=== PATIENT | female | born 1965 | race American Indian/Alaskan Native ===

== ENCOUNTER 2017-08-22 08:04 | Day surgery (SDC) | payer BC ==
[2017-08-16 08:11] VITALS: BMI 31.8
[2017-08-22 09:04] VITALS: TEMP 98.6
[2017-08-22] MEDS ORDERED: Lactated Ringer's 500 ML IV SCH (11:30)
[2017-08-22] MEDS ORDERED: Propofol 10 mg/ml Inj (20 ML) ONE (11:31)
[2017-08-22] MEDS ORDERED: Midazolam 2 MG/2 ML VIAL ONE (11:31)
[2017-08-22 12:51] VITALS: O2SAT 100
[2017-08-22 12:53] VITALS: PULSE 68
[2017-08-22 13:50] VITALS: BP 168/98; RESP 20
== END 2017-08-22 13:45 | disposition home or self-care (01) ==
LOC: C.ENDO 08:04
PROVIDERS: ATTEND Internal Medicine Gastroenterology
DX: R19.4 Change in bowel habit (principal); R12 Heartburn; K63.5 Polyp of colon; K64.1 Second degree hemorrhoids; K44.9 Diaphragmatic hernia without obstruction or gangrene; K21.0 Gastro-esophageal reflux disease with esophagitis; K29.70 Gastritis, unspecified, without bleeding; J45.909 Unspecified asthma, uncomplicated; I10 Essential (primary) hypertension; E11.9 Type 2 diabetes mellitus without complications; Z79.84 Long term (current) use of oral hypoglycemic drugs; Z79.02 Long term (current) use of antithrombotics/antiplatelets
CPT/HCPCS: 43239; 45380; 45385; 82948; 84703; 88305; J2250; J2704; J7120

== ENCOUNTER 2018-02-04 20:55 | Emergency (ER) | payer BC ==
[2018-02-04 20:55] VITALS: BMI 31.8
[2018-02-04 21:17] VITALS: TEMP 97.9; O2SAT 98
[2018-02-04 22:06] LABS: BASO # 0.1 K/uL (0.0-0.2); BASO % 1.2 % (0.0-2.0); EOS # 0.3 K/uL (0.0-0.7); EOS % 3.8 % (0.0-4.0); HEMOGLOBIN 12.2 g/dL (11.0-16.0); LYMPH # 3.4 K/uL (1.0-4.3); LYMPH % 46.6 % (20.0-40.0); MEAN CELL VOLUME 83.8 fL (81.0-99.0); MEAN CORPUSCULAR HEMOGLOBIN 29.7 pg (27.0-31.0); MEAN CORPUSCULAR HGB CONC 35.5 g/dL (33.0-37.0); MEAN PLATELET VOLUME 8.4 fL (7.2-11.7); MONO # 0.4 K/uL (0.0-0.8); MONO % 5.9 % (0.0-10.0); NEUT # 3.1 K/uL (1.8-7.0); NEUT % 42.5 % (50.0-75.0); NRBC % 0.1 % (0.0-2.0); RBC 4.11 Mil/uL (3.80-5.20); RED CELL DISTRIBUTION WIDTH 14.1 % (11.5-14.5); WHITE BLOOD COUNT 7.3 K/uL (4.8-10.8)
--- NOTE | 2018-02-04 22:27 | C.PDOC ---
History Of Present Illness 52 year old female presents to the ED c/o bruising to the right arm that she noticed this morning. Patient reports she has a similar episode 2 weeks ago that resolved spontaneously resolved. Patient is also c/o minimal pain to right arm associated with tingling to right hand. Patient denies injury, fall, trauma , weakness, numbness. Time Seen by Provider: 02/04/18 21:28 Chief Complaint (Nursing): Upper Extremity Problem/Injury History Per: Patient History/Exam Limitations: no limitations Onset/Duration Of Symptoms: Days Current Symptoms Are (Timing): Still Present Quality: "Pain" Recent travel outside of the [place]: No Additional History Per: Patient Past Medical History Reviewed: Historical Data, Nursing Documentation, Vital Signs Vital Signs: Last Vital Signs Temp 97.9 F 02/04/18 21:13 Pulse 71 02/04/18 22:27 Resp 18 02/04/18 22:27 BP 160/93 H 02/04/18 22:27 Pulse Ox 98 02/04/18 22:54 - Medical History PMH: Asthma, Gastritis, HTN, Peripheral Edema Denies: Chronic Kidney Disease Surgical History: Endoscopy - [facility] Procedures CORONAR ARTERIOGR-2 CATH (03/29/14) LEFT HEART CARDIAC CATH (03/29/14) LT HEART ANGIOCARDIOGRAM (03/29/14) Family History: States: Unknown Family Hx - Social History Hx Alcohol Use: No Hx Substance Use: No - Immunization History Hx Tetanus Toxoid Vaccination: No Hx Influenza Vaccination: No Hx Pneumococcal Vaccination: No Review Of Systems Constitutional: Negative for: Fever, Chills Musculoskeletal: Positive for: Arm Pain (intermittent) Skin: Positive for: Bruising Neurological: Negative for: Numbness Physical Exam - Physical Exam Appears: Non-toxic, No Acute Distress Skin: Normal Color, Warm, Dry, No Ecchymosis, Other (small hematoma localized to mid lateral posterior right arm. ) Head: Atraumatic, Normacephalic Eye(s): bilateral: Normal Inspection, PERRL Nose: No Discharge Oral Mucosa: Moist Neck: Normal ROM, Supple Chest: Symmetrical Extremity: Normal ROM, No Tenderness, Capillary Refill (< 2 seconds), No Deformity, No Swelling Pulses: Left Brachial: Normal, Right Brachial: Normal, Left Dorsalis Pedis: Normal, Right Dorsalis Pedis: Normal Neurological/Psych: Oriented x3, Normal Speech, Normal Cognition, Normal Motor, Normal Sensation Gait: Steady ED Course And Treatment - Laboratory Results Result Diagrams: 02/04/18 22:00 O2 Sat by Pulse Oximetry: 98 (ON RA) Pulse Ox Interpretation: Normal Progress Note: Plan: - Labs. Pt with small localized area of ecchymosis/ hematoma to Rt forearm,atraumatic. No xray indicated at this time. On reassessment, patient appears comfortable, and is in no acute distress. Patient was instructed to follow up with physician/clinic in 1-2 days for further evaluation. Disposition Counseled Patient/Family Regarding: Diagnosis, Need For Followup - Disposition Referrals: Sheri Barakat MD [Staff Provider] - Disposition: HOME/ ROUTINE Disposition Time: 22:25 Condition: STABLE Additional Instructions: Please follow up with PMD Take tylenol or advil if pain Return to ER if worse Instructions: Contusion (DC) Forms: [facility] ([place]atemalan) - Clinical Impression Clinical Impression: Ecchymosis of forearm - PA / QUANTITATIVE MANAGER / Resident Statement MD/DO has reviewed & agrees with the documentation as recorded. - Scribe Statement The provider has reviewed the documentation as recorded by the Scribe Sinan Zaman All medical record entries made by the Patriciaibgustavo were at my direction and personally dictated by me. I have reviewed the chart and agree that the record accurately reflects my personal performance of the history, physical exam, medical decision making, and the department course for this patient. I have also personally directed, reviewed, and agree with the discharge instructions and disposition.
[2018-02-04 22:28] VITALS: BP 160/93; PULSE 71; RESP 18
== END 2018-02-04 22:40 | disposition home or self-care (01) ==
LOC: C.ER 20:55
DX: S50.11XA Contusion of right forearm, initial encounter (principal); X58.XXXA Exposure to other specified factors, initial encounter

== ENCOUNTER 2018-02-05 13:15 | Emergency (ER) | payer BC ==
[2018-02-05 13:16] VITALS: BMI 31.8
--- NOTE | 2018-02-05 13:55 | C.PDOC ---
History Of Present Illness 52 y/o female c/o pain and swelling to right forearm x 2 days. says she had no injury and woke with ecchymosis and tenderness yesterday, sts that swelling proximal to bruise has only worsened since then, and now has a bruise on right upper thigh as well without injury. pt take plavix. pt seen in ed yesterday for this. pt has not elevated arm, applied cold compress or taken any analgesics. Time Seen by Provider: 02/05/18 13:30 Chief Complaint (Nursing): Upper Extremity Problem/Injury History Per: Patient History/Exam Limitations: no limitations Onset/Duration Of Symptoms: Days (2) Current Symptoms Are (Timing): Worse Quality: "Pain" Severity: Moderate Exacerbating Factor(s): Nothing Past Medical History Reviewed: Historical Data, Nursing Documentation, Vital Signs Vital Signs: Last Vital Signs Temp 98.6 F 02/05/18 15:10 Pulse 70 02/05/18 15:10 Resp 17 02/05/18 15:10 BP 130/81 02/05/18 15:10 Pulse Ox 100 02/05/18 15:10 - Medical History PMH: Asthma, Gastritis, HTN, Peripheral Edema Denies: Chronic Kidney Disease Surgical History: Endoscopy - [facility] Procedures CORONAR ARTERIOGR-2 CATH (03/29/14) LEFT HEART CARDIAC CATH (03/29/14) LT HEART ANGIOCARDIOGRAM (03/29/14) Family History: States: Unknown Family Hx - Social History Hx Alcohol Use: Yes Hx Substance Use: No - Immunization History Hx Tetanus Toxoid Vaccination: No Hx Influenza Vaccination: No Hx Pneumococcal Vaccination: No Review Of Systems Constitutional: Negative for: Fever, Chills Musculoskeletal: Positive for: Arm Pain (right) Skin: Positive for: Bruising (right forearm and right thigh) Neurological: Negative for: Weakness, Numbness Physical Exam - Physical Exam Appears: Non-toxic, No Acute Distress Skin: Warm, Dry, Ecchymosis (tender mildly swollen ecchymosis to upper third right forearm, approx 3 cm round. 2 cm flat ecchymosis to right thigh, non tender) Extremity: Normal ROM, Capillary Refill (less than 2 eseconds), No Deformity, Swelling (right forearm at site of bruise) Pulses: Right Radial: Normal Neurological/Psych: Oriented x3, Normal Speech, Normal Cognition, Normal Motor, Normal Sensation ED Course And Treatment O2 Sat by Pulse Oximetry: 97 Medical Decision Making Medical Decision Making: second eval for non traumatic ecchymosis to right forearm; cbc done on first visit; normal plts. coags checked on this visit- normal. xray forearm normal. [place] bandage and sling given with analgesics and pmd f/u Disposition Counseled Patient/Family Regarding: Studies Performed, Diagnosis, Need For Followup, Rx Given - Disposition Referrals: Sheri Barakat MD [Staff Provider] - Disposition: HOME/ ROUTINE Disposition Time: 14:40 Condition: GOOD Additional Instructions: Please apply cold compresses to swollen bruised area several times per day, and wear [place] bandage during awake hours to help decrease swelling. Keep arm elevated at bedtime (prop up on pillow) and wear sling otherwise. Follow up with Dr Barakat in a few days. Tylenol or Motrin for pain. Instructions: Contusion (DC) Forms: General Discharge Instructions, [facility] ([place]), Work Excuse - Clinical Impression Clinical Impression: Contusion of right forearm, subsequent encounter
--- NOTE | 2018-02-05 14:02 | RAD ---
PROCEDURE: Radiographs of the Right Forearm HISTORY: swelling mid forearm COMPARISON: None available. TECHNIQUE: Frontal and lateral views obtained. FINDINGS: BONES: No fracture or destructive lesion. JOINT SPACES: Unremarkable. OTHER FINDINGS: None. IMPRESSION: Unremarkable radiographs of the right forearm.
[2018-02-05 14:20] LABS: PROTHROMBIN TIME 11.3 SECONDS (9.7-12.2)
[2018-02-05 15:11] VITALS: BP 130/81; PULSE 70; RESP 17; TEMP 98.6
[2018-02-05 16:40] VITALS: O2SAT 97
== END 2018-02-05 15:10 | disposition home or self-care (01) ==
LOC: C.ER 13:15
DX: S50.11XD Contusion of right forearm, subsequent encounter (principal); X58.XXXD Exposure to other specified factors, subsequent encounter

== ENCOUNTER 2019-01-05 18:58 | Observation (INO) | payer BC ==
[2019-01-05 18:58] VITALS: BMI 31.8
[2019-01-05 20:13] LABS: BASO % 0.5 % (0.0-2.0); EOS # 0.1 K/uL (0.0-0.7); EOS % 2.2 % (0.0-4.0); HEMOGLOBIN 11.8 g/dL (11.0-16.0); LYMPH # 2.3 K/uL (1.0-4.3); MEAN CELL VOLUME 85.1 fL (81.0-99.0); MEAN CORPUSCULAR HEMOGLOBIN 27.7 pg (27.0-31.0); MEAN CORPUSCULAR HGB CONC 32.6 g/dL (33.0-37.0); MEAN PLATELET VOLUME 8.1 fL (7.2-11.7); MONO # 0.3 K/uL (0.0-0.8); MONO % 5.4 % (0.0-10.0); NEUT # 3.2 K/uL (1.8-7.0); NEUT % 52.9 % (50.0-75.0); RBC 4.27 Mil/uL (3.80-5.20); RED CELL DISTRIBUTION WIDTH 13.8 % (11.5-14.5)
[2019-01-05 20:28] LABS: ALB/GLOB RATIO 1.4 (1.0-2.1); ALBUMIN 4.1 g/dL (3.5-5.0); ALT/SGPT 14 U/L (9-52); AST/SGOT 30 U/L (14-36); BLOOD UREA NITROGEN 17 mg/dL (7-17); CALCIUM 9.7 mg/dl (8.6-10.4); GFR NON-AFRICAN AMERICAN > 60
[2019-01-05 20:38] LABS: B-TYPE NATRIURETIC PEPTIDE 237 pg/mL (0-900)
[2019-01-05 21:08] LABS: T3 1.24 nmol/L (1.49-2.60)
--- NOTE | 2019-01-05 21:45 | C.PDOC ---
History Of Present Illness 53 year old female referred by PMD to ED for evaluation of EKG changes while having an EKG done in the doctor's office. Patient also complains of chest discomfort and palpitations for several days. She also complains of dry cough. Patient denies pain and SOB. Chief Complaint (Nursing): Chest Pain History Per: Patient History/Exam Limitations: no limitations Onset/Duration Of Symptoms: Days Current Symptoms Are (Timing): Still Present Quality: Other (discomfort) Associated Symptoms: denies: Dyspnea Alleviating Factors: None Past Medical History Reviewed: Historical Data, Nursing Documentation, Vital Signs Vital Signs: Last Vital Signs Temp 98.5 F 01/05/19 19:18 Pulse 68 01/05/19 21:37 Resp 16 01/05/19 21:37 BP 160/85 H 01/05/19 21:37 Pulse Ox 100 01/05/19 21:37 - Medical History PMH: Asthma, Gastritis, HTN, Peripheral Edema Denies: Chronic Kidney Disease Surgical History: Endoscopy - [facility] Procedures CORONAR ARTERIOGR-2 CATH (03/29/14) LEFT HEART CARDIAC CATH (03/29/14) LT HEART ANGIOCARDIOGRAM (03/29/14) Family History: States: Unknown Family Hx - Social History Hx Alcohol Use: Yes Hx Substance Use: No - Immunization History Hx Tetanus Toxoid Vaccination: No Hx Influenza Vaccination: No Hx Pneumococcal Vaccination: No Review Of Systems Cardiovascular: Positive for: Chest Pain (chest discomfort), Palpitations Respiratory: Positive for: Cough. Negative for: Shortness of Breath, Sputum Gastrointestinal: Negative for: Nausea, Vomiting Physical Exam - Physical Exam Appears: Well, Non-toxic, No Acute Distress Skin: Normal Color, Warm, Dry Head: Atraumatic, Normacephalic Neck: Normal ROM, Supple Chest: Symmetrical, No Deformity, No Tenderness Cardiovascular: Rhythm Regular, No Murmur Respiratory: Accessory Muscle Use, No Rales, No Rhonchi, No Wheezing Gastrointestinal/Abdominal: Normal Exam, Soft, No Tenderness Neurological/Psych: Oriented x3, Normal Speech, Normal Cognition ED Course And Treatment - Laboratory Results Result Diagrams: 01/05/19 20:07 01/05/19 20:07 Lab Results: Troponin I < 0.0120 ng/mL (0.00-0.120) 01/05/19 20:07 NT-Pro-B Natriuret Pep 237 pg/mL (0-900) 01/05/19 20:07 Total Bilirubin 0.2 mg/dL (0.2-1.3) 01/05/19 20:07 AST 30 U/L (14-36) 01/05/19 20:07 ALT 14 U/L (9-52) 01/05/19 20:07 Alkaline Phosphatase 93 U/L (38-126) 01/05/19 20:07 Total Protein 7.0 g/dL (6.3-8.3) 01/05/19 20:07 Albumin 4.1 g/dL (3.5-5.0) 01/05/19 20:07 Globulin 3.0 gm/dL (2.2-3.9) 01/05/19 20:07 Albumin/Globulin Ratio 1.4 (1.0-2.1) 01/05/19 20:07 ECG: Interpreted By Me, Viewed By Me ECG Rhythm: Sinus Rhythm ECG Interpretation: Normal Interpretation Of ECG: Normal axis. T-wave inversion in the inferior and lateral leads. Rate From EC O2 Sat by Pulse Oximetry: 100 (in RA) Medical Decision Making Medical Decision Making: Impression: 53 year old female referred by PMD to ED for evaluation of EKG changes Plan: EKG and CXR ordered for patient Labs ordered with cardiac enzymes, CBC, and CMP Patient given aspirin Progress: Spoke to Dr. Barakat. T- wave inversions are new from the patient's previous EKG in his office. Patient to be admitted to Dr. Barakat's service in [facility]. Patient is currently in no distress. Disposition - Disposition Disposition: HOSPITALIZED Disposition Time: 20:30 Condition: STABLE - Clinical Impression Clinical Impression: Chest pain, Acute electrocardiogram changes - Scribe Statement The provider has reviewed the documentation as recorded by the Scribe (Chiquis William) All medical record entries made by the Scribe were at my direction and personally dictated by me. I have reviewed the chart and agree that the record accurately reflects my personal performance of the history, physical exam, medical decision making, and the department course for this patient. I have also personally directed, reviewed, and agree with the discharge instructions and disposition.
[2019-01-05] MEDS ORDERED: Glucagon Recombinant 1 mg Inj IM PRN (23:54)
[2019-01-06 04:24] LABS: CK-MB 0.87 ng/mL (0.0-3.38)
[2019-01-06] MEDS: Levothyroxine 88 MCG TAB PO SCH (05:42)
[2019-01-06] MEDS: Nitroglycerin 2% Ointment Foilpak UD TOP SCH ×4 (05:42→23:58)
[2019-01-06] MEDS: (Novolog) Insulin Aspart, Recombinant 100 u/ml 10 ml vial SC SCH ×4 (07:19→21:38)
[2019-01-06] MEDS: Pantoprazole 40 mg EC Tab PO SCH (09:10)
[2019-01-06] MEDS: Enoxaparin 30 mg Syringe SC SCH ×2 (09:10→21:38)
[2019-01-06] MEDS: diltiaZEM 300 mg/24 Hours CD Cap PO SCH (09:10)
[2019-01-06] MEDS ORDERED: Aluminum Hydroxide/Magnesium Hydroxide Susp (30 mL) PO ONE (10:04)
--- NOTE | 2019-01-06 10:05 | RAD ---
Chest x-ray single frontal view HISTORY: Chest pain. COMPARISON: None available. Findings: No focal infiltrate or effusion. Heart size within normal limits. Calcific tendinopathy of the right proximal humerus. Impression: No focal infiltrate or effusion.
--- NOTE | 2019-01-06 11:51 | CP.PCM.HP ---
History of Present Illness - History of Present Illness History of Present Illness: COMPREHENSIVE CONSULT HPI CHEST PAIN FOR FEW DAYS . EKG DONE IN OFFICE AND ER SHOWS DEEP T WAVE INVERSION IN CHEST LEADS . PREVIOUS EKG ARE NORMAL . ECHO SHOWED NORMAL LV EF WITH NORMAL WALL MOTION HAS H/O DM, UNCONTROLLED HTN, MALIGNANT THROID NODULE REMOVED , COPD AND SEVERE REFLUX ESOPHAGITIS PAST HIST. PERSONAL HIST: Smoking. N Alcohol. N Allergy N Travel_- . FAMILY HIST : ROS : Constitutional: Negative for weight change, chills, night sweats, fatigue and usage of assist device. Eyes: Negative for redness, swelling, itching, discharge, vision changes, blurry vision, double vision, glaucoma, cataracts, Ears: Negative for hearing loss, ringing, , tinnitus, vertigo Nose: Negative for rhinorrhea, stuffiness, sniffing, itching, postnasal drip, discoloration, nasal congestion and epistaxis. Throat: Negative for throat clearing, sore throat, hoarseness, difficulty swallowing and difficulty speaking. Respiratory: Negative for cough, , sputum production, chest tightness, wheezing, pleuritic chest pain ,daytime somnolence, chronic cough, hemoptysis, snoring at night, Cardiovascular: Negative for PND, Edema of legs, leg cramps, angina, claudication, , irregular heartbeat, Neurology: Negative for irritability, muscle weakness, numbness and tingling, seizures, tremors, migraines, slurred speech, syncope, memory loss, mood changes, recurrent headaches Gastrointestinal: Negative for difficulty swallowing, diarrhea, constipation, black stools, rectal bleeding, nausea, flatulence, reflux, poor appetite, changes in bowel habits, abdominal pain Genitourinary: Negative for frequent urination, hematuria, discharge, incontinence, urinary retention, frequent UTI, Psychiatric: Negative for depression, anxiety/panic, suicidal tendencies, Musculoskeletal: Negative for swollen joints, back pain, , neck pain, morning stiffness of joints, . Skin: Negative for rash, ulcers, itching, dry skin and pigmented lesions. P/E: Constitutional: Appears stated age and in no apparent distress. Head: Normocephalic. Ears: External ear canals patent without inflammation. Tympanic membranes intact with normal light reflex and landmark. Eyes: Pupils are central, bilaterally equal, symmetrical and reacts to light with normal movements and no icterus or pallor. Nose: External nares are patent. Mucosa is pink Mouth-Throat: Good general appearance and condition. No post-pharyngeal/oropharyngeal erythema and to nsillar hypertrophy. Good dental hygiene. Neck-Lymphatic: Neck is supple with normal ROM, no thyromegaly, lymph nodes or masses. JVD is normal with no carotid bruit. Lungs: Clear to percussion and auscultation with bilateral normal air entry. Cardiovascular: S1 and S2 are normal with no murmurs, gallops and rub. GI Exam: No hepatomegaly. Abdomen is soft and non-tender. No Organomegaly , masses or hernias are evident and bowel sounds are normal and active. Neurology: Higher function and all cranial nerves intact, with no gross motor or sensory deficit. Superficial and deep reflexes are normal with downwards planters. No cerebellar deficit with normal gait. Musculoskeletal: No tender spots with normal curvature of the spine with no swelling or restricted ROM of the small and large joints. Extremities: Homans sign absent. Intact pulses with no pitting edema, calf tenderness or skin color changes. Skin: No rash, eruptions or abnormal skin pigmentation LAB/RADIOLOGY: ASSESMENT : UNSTABLE ANGINA WITH NEW EKG T WAVE CHANGES T2DM COPD GERD PLAN: CARDIAC CATH IIN AM Present on Admission - Present on Admission Any Indicators Present on Admission: No Past Patient History - Infectious Disease Hx of Infectious Diseases: None - Past Medical History & Family History Past Medical History?: Yes - Past Social History Smoking Status: Former Smoker - CARDIAC Hx Hypertension: Yes Hx Peripheral Edema: Yes - PULMONARY Hx Asthma: Yes - NEUROLOGICAL Hx Neurological Disorder: Yes Hx Dizziness: Yes Hx Syncope: Yes - HEENT Hx HEENT Problems: No - RENAL Hx Chronic Kidney Disease: No - ENDOCRINE/METABOLIC Hx Endocrine Disorders: Yes Hx Diabetes Mellitus Type 2: Yes Other/Comment: THYROID NODULES - HEMATOLOGICAL/ONCOLOGICAL Hx Blood Disorders: No - INTEGUMENTARY Hx Dermatological Problems: No - MUSCULOSKELETAL/RHEUMATOLOGICAL Hx Musculoskeletal Disorders: No - GASTROINTESTINAL Hx Gastritis: Yes - GENITOURINARY/GYNECOLOGICAL Hx Genitourinary Disorders: No - PSYCHIATRIC Hx Substance Use: No - SURGICAL HISTORY Hx Surgeries: Yes Other/Comment: Thyroid nodules - ANESTHESIA Hx Anesthesia: Yes (denies) Hx Anesthesia Reactions: Yes (difficulty waking up) Hx Malignant Hyperthermia: No Meds Allergies/Adverse Reactions: Allergies Allergy/AdvReac Type Severity Reaction Status Date / Time ANKIT Inhibitors Allergy Intermediate URTICARIA Verified 01/05/19 19:25 rosuvastatin [From Crestor] Allergy Intermediate URTICARIA Verified 01/05/19 19:25 Results - Vital Signs Recent Vital Signs: Last Vital Signs Temp 97.3 F L 01/06/19 07:45 Pulse 84 01/06/19 07:47 Resp 20 01/06/19 07:45 BP 145/86 01/06/19 07:45 Pulse Ox 97 01/06/19 07:49 - Labs Result Diagrams: 01/05/19 20:07 01/05/19 20:07 Labs: Laboratory Results - last 24 hr 01/05/19 01/05/19 01/05/19 20:07 20:07 20:07 WBC 6.0 RBC 4.27 Hgb 11.8 Hct 36.3 MCV 85.1 MCH 27.7 MCHC 32.6 L RDW 13.8 Plt Count 202 MPV 8.1 Neut % (Auto) 52.9 Lymph % (Auto) 39.0 [place] % (Auto) 5.4 Eos % (Auto) 2.2 Baso % (Auto) 0.5 Neut # (Auto) 3.2 Lymph # (Auto) 2.3 [place] # (Auto) 0.3 Eos # (Auto) 0.1 Baso # (Auto) 0.0 Sodium 138 Potassium 3.9 Chloride 103 Carbon Dioxide 23 Anion Gap 16 BUN 17 Creatinine 0.9 Est GFR ( Amer) > 60 Est GFR (Non-Af Amer) > 60 POC Glucose (mg/dL) Random Glucose 228 H Calcium 9.7 Total Bilirubin 0.2 AST 30 ALT 14 Alkaline Phosphatase 93 Total Creatine Kinase CK-MB (Mass) Troponin I < 0.0120 NT-Pro-B Natriuret Pep 237 Total Protein 7.0 Albumin 4.1 Globulin 3.0 Albumin/Globulin Ratio 1.4 Free T4 1.63 Total T3 1.24 L TSH 3rd Generation 0.33 L 01/06/19 01/06/19 01/06/19 03:58 06:09 11:02 WBC RBC Hgb Hct MCV MCH MCHC RDW Plt Count MPV Neut % (Auto) Lymph % (Auto) [place] % (Auto) Eos % (Auto) Baso % (Auto) Neut # (Auto) Lymph # (Auto) [place] # (Auto) Eos # (Auto) Baso # (Auto) Sodium Potassium Chloride Carbon Dioxide Anion Gap BUN Creatinine Est GFR ( Amer) Est GFR (Non-Af Amer) POC Glucose (mg/dL) 129 H 257 H Random Glucose Calcium Total Bilirubin AST ALT Alkaline Phosphatase Total Creatine Kinase 185 H CK-MB (Mass) 0.87 Troponin I < 0.0120 NT-Pro-B Natriuret Pep Total Protein Albumin Globulin Albumin/Globulin Ratio Free T4 Total T3 TSH 3rd Generation
--- NOTE | 2019-01-06 20:48 | CARD ---
APPROVED REPORT Date of service: 01/05/2019 EKG Measurement Heart [id number] <Conclusion> Normal sinus rhythm Rightward axis T wave abnormality, consider inferior ischemia T wave abnormality, consider anterolateral ischemia Abnormal ECG
[2019-01-07] MEDS: Nitroglycerin 2% Ointment Foilpak UD TOP SCH ×3 (06:49→16:59)
[2019-01-07] MEDS: Levothyroxine 88 MCG TAB PO SCH (06:50)
[2019-01-07 07:29] LABS: PROTHROMBIN TIME 11.2 SECONDS (9.7-12.2)
[2019-01-07] MEDS: (Novolog) Insulin Aspart, Recombinant 100 u/ml 10 ml vial SC SCH ×4 (08:18→21:22)
[2019-01-07] MEDS: Enoxaparin 30 mg Syringe SC SCH ×2 (10:36→21:41)
[2019-01-07] MEDS: diltiaZEM 300 mg/24 Hours CD Cap PO SCH (10:42)
[2019-01-07] MEDS: Pantoprazole 40 mg EC Tab PO SCH (10:42)
--- NOTE | 2019-01-07 11:38 | CP.PCM.PN ---
Subjective - Date & Time of Evaluation Date of Evaluation: 01/07/19 Time of Evaluation: 11:37 - Subjective Subjective: STILL C/O CP AT REST TNI NEG EKG DEEP T WAVE CHANGES D/W . PT. FOR CARDIAC CATH IN VIEW OF NEW EKG CHANGES, CP AND DM Objective - Vital Signs/Intake and Output Vital Signs (last 24 hours): Temp Pulse Resp BP Pulse Ox 97.8 F 67 18 134/86 99 01/07/19 07:10 01/07/19 10:42 01/07/19 07:10 01/07/19 10:42 01/07/19 07:10 - Medications Medications: Current Medications Dextrose (Glutose 15) 0 gm PO ONCE PRN; Protocol PRN Reason: Hypoglycemia Protocol Diltiazem HCl (Cardizem Cd) 300 mg PO DAILY [facility] Last Admin: 01/07/19 10:42 Dose: 300 mg Ezetimibe (Zetia) 10 mg PO DAILY [facility] Last Admin: 01/07/19 10:42 Dose: 10 mg Enoxaparin Sodium (Lovenox) 30 mg SC Q12 [facility] Last Admin: 01/07/19 10:36 Dose: Not Given Fenofibrate (Tricor) 48 mg PO QPM [facility] Last Admin: 01/06/19 18:07 Dose: 48 mg Glipizide (Glucotrol) 10 mg PO BID [facility] Last Admin: 01/07/19 10:36 Dose: Not Given Glucagon (Glucagen Diagnostic Kit) 0 mg IM STAT PRN; Protocol PRN Reason: Hypoglycemia Protocol Dextrose (Dextrose 5% In Water 1000 Ml) 1,000 mls @ 0 mls/hr IV .Q0M PRN; Protocol PRN Reason: Hypoglycemia Protocol Insulin Aspart (Novolog) 0 unit SC ACHS [facility]; Protocol Last Admin: 01/07/19 08:18 Dose: Not Given Levothyroxine Sodium (Synthroid) 88 mcg PO DAILY@0630 [facility] Last Admin: 01/07/19 06:50 Dose: 88 mcg Metformin HCl (Glucophage) 1,000 mg PO BID [facility] Last Admin: 01/06/19 09:09 Dose: 1,000 mg Nitroglycerin (Nitro-Bid 2% Oint) 0.5 ea TOP Q6 [facility] Last Admin: 01/07/19 06:49 Dose: 0.5 ea Pantoprazole Sodium (Protonix Ec Tab) 40 mg PO DAILY [facility] Last Admin: 01/07/19 10:42 Dose: 40 mg - Labs Labs: 01/05/19 20:07 01/05/19 20:07 PT 11.2 SECONDS (9.7-12.2) 01/07/19 07:06 INR 1.0 01/07/19 07:06 APTT 31 SECONDS (21-34) 01/07/19 07:06
[2019-01-07] MEDS ORDERED: Lidocaine 1% 20 MG/2 ML PF AMP ONE (15:55)
[2019-01-07] MEDS ORDERED: Iodixanol 320 MG/ML 100 ML BOTTLE IV ONE ×2 (15:55→17:06)
[2019-01-07] MEDS ORDERED: Lidocaine 2% MPF (5 ml) Inj ONE (16:44)
[2019-01-07 23:50] VITALS: RESP 20
[2019-01-08] MEDS: Nitroglycerin 2% Ointment Foilpak UD TOP SCH ×5 (00:16→23:43)
[2019-01-08] MEDS: Levothyroxine 88 MCG TAB PO SCH (06:29)
--- NOTE | 2019-01-08 06:43 | CARDCATH ---
PROCEDURE DATE: 01/07/2019 CARDIAC CATHETERIZATION REPORT The patient was admitted with unstable angina with deep T-wave changes in the EKG. Cardiac enzymes were negative. The patient underwent a left heart cath. Left heart cath was done to the right femoral artery. Angio-Seal was used post-cath. Franco catheters were used for the right and left and LV angiogram. Left main is a normal vessel, gives around large LAD. There are no any lesions in the main trunk of the LAD or its branches diagonal 1 and 2. Circumflex is non-small vessel and is large obtuse marginal branch. There are no lesions in the main branch. RCA is a right dominant vessel. In the mid, there is about 30% to 40% atherosclerotic lesion and distally at PDA, there is about 40% lesion. LV gram was done by hand injection shows grossly normal left ventricular ejection fraction about estimated EF of 50%. FINAL CONCLUSION: 1. Normal left ventricular ejection fraction at 50%. 2. Nonsignificant atherosclerotic blockage in the right coronary and distal right coronary. PLAN: Continue medical therapy. Sheri Barakat MD
[2019-01-08] MEDS: (Novolog) Insulin Aspart, Recombinant 100 u/ml 10 ml vial SC SCH ×4 (08:19→21:53)
[2019-01-08] MEDS: Enoxaparin 30 mg Syringe SC SCH ×2 (09:18→21:52)
[2019-01-08] MEDS: Pantoprazole 40 mg EC Tab PO SCH (09:18)
[2019-01-08] MEDS: diltiaZEM 300 mg/24 Hours CD Cap PO SCH (09:19)
--- NOTE | 2019-01-08 11:47 | CP.PCM.DIS ---
Provider - Provider Date of Admission: 01/05/19 21:25 Attending physician: Sheri Barakat MD Time Spent in preparation of Discharge (in minutes): 32 Hospital Course - Lab Results Lab Results: Most Recent Lab Values WBC 6.0 K/uL (4.8-10.8) 01/05/19 20:07 RBC 4.27 Mil/uL (3.80-5.20) 01/05/19 20:07 Hgb 11.8 g/dL (11.0-16.0) 01/05/19 20:07 Hct 36.3 % (34.0-47.0) 01/05/19 20:07 MCV 85.1 fL (81.0-99.0) 01/05/19 20:07 MCH 27.7 pg (27.0-31.0) 01/05/19 20: MCHC 32.6 g/dL (33.0-37.0) L 01/05/19 20:07 RDW 13.8 % (11.5-14.5) 01/05/19 20:07 Plt Count 202 K/uL (130-400) 01/05/19 20:07 MPV 8.1 fL (7.2-11.7) 01/05/19 20:07 Neut % (Auto) 52.9 % (50.0-75.0) 01/05/19 20:07 Lymph % (Auto) 39.0 % (20.0-40.0) 01/05/19 20:07 [place] % (Auto) 5.4 % (0.0-10.0) 01/05/19 20:07 Eos % (Auto) 2.2 % (0.0-4.0) 01/05/19 20:07 Baso % (Auto) 0.5 % (0.0-2.0) 01/05/19 20:07 Neut # (Auto) 3.2 K/uL (1.8-7.0) 01/05/19 20:07 Lymph # (Auto) 2.3 K/uL (1.0-4.3) 01/05/19 20:07 [place] # (Auto) 0.3 K/uL (0.0-0.8) 01/05/19 20:07 Eos # (Auto) 0.1 K/uL (0.0-0.7) 01/05/19 20:07 Baso # (Auto) 0.0 K/uL (0.0-0.2) 01/05/19 20:07 PT 11.2 SECONDS (9.7-12.2) 01/07/19 07:06 INR 1.0 01/07/19 07:06 APTT 31 SECONDS (21-34) 01/07/19 07:06 Sodium 138 mmol/L (132-148) 01/05/19 20:07 Potassium 3.9 mmol/L (3.6-5.2) 01/05/19 20:07 Chloride 103 mmol/L (98-107) 01/05/19 20:07 Carbon Dioxide 23 mmol/L (22-30) 01/05/19 20:07 Anion Gap 16 (10-20) 01/05/19 20:07 BUN 17 mg/dL (7-17) 01/05/19 20:07 Creatinine 0.9 mg/dL (0.7-1.2) 01/05/19 20:07 Est GFR ( Amer) > 60 01/05/19 20:07 Est GFR (Non-Af Amer) > 60 01/05/19 20:07 POC Glucose (mg/dL) 183 mg/dL (65-110) H 01/08/19 06:07 Random Glucose 228 mg/dL (65-105) H 01/05/19 20:07 Calcium 9.7 mg/dl (8.6-10.4) 01/05/19 20:07 Total Bilirubin 0.2 mg/dL (0.2-1.3) 01/05/19 20:07 AST 30 U/L (14-36) 01/05/19 20:07 ALT 14 U/L (9-52) 01/05/19 20:07 Alkaline Phosphatase 93 U/L (38-126) 01/05/19 20:07 Total Creatine Kinase 176 U/L (30-135) H 01/06/19 12:20 CK-MB (Mass) 0.80 ng/mL (0.0-3.38) 01/06/19 12:20 Troponin I < 0.0120 ng/mL (0.00-0.120) 01/06/19 12:20 NT-Pro-B Natriuret Pep 237 pg/mL (0-900) 01/05/19 20:07 Total Protein 7.0 g/dL (6.3-8.3) 01/05/19 20:07 Albumin 4.1 g/dL (3.5-5.0) 01/05/19 20:07 Globulin 3.0 gm/dL (2.2-3.9) 01/05/19 20:07 Albumin/Globulin Ratio 1.4 (1.0-2.1) 01/05/19 20:07 Free T4 1.63 ng/dL (0.78-2.19) 01/05/19 20:07 Total T3 1.24 nmol/L (1.49-2.60) L 01/05/19 20:07 TSH 3rd Generation 0.33 mIU/L (0.46-4.68) L 01/05/19 20:07 Urine HCG, Qual Negative (NEGATIVE) 01/07/19 08:48 - Hospital Course Hospital Course: CHEST PAIN FOR FEW DAYS . EKG DONE IN OFFICE AND ER SHOWS DEEP T WAVE INVERSION IN CHEST LEADS . PREVIOUS EKG ARE NORMAL . ECHO SHOWED NORMAL LV EF WITH NORMAL WALL MOTION HAS H/O DM, UNCONTROLLED HTN, MALIGNANT THROID NODULE REMOVED , COPD AND SEVERE REFLUX ESOPHAGITIS CARDIAC CATH MINIMAL LESS THAN 30% LESION IN MID AND DISTAL RCA N LV EF PT STABLE , D/C HOME Discharge Plan - Follow Up Plan Condition: STABLE Disposition: HOME/ ROUTINE Instructions: Chest Pain (DC) Additional Instructions: FOLLOW UP WITH DR BARAKAT IN HIS OFFICE IN A WEEK -----CALL FOR APPOINTMENT CONTINUE HOME MEDICATION ACTIVITY TOLERATED CALL DR BARAKAT OR GO TO THE EMERGENCY ROOM IF SYMPTOM RETURN NOR WORSENING Referrals: Sheri Barakat MD [Staff Provider] -
--- NOTE | 2019-01-08 13:23 | CP.PCM.PCO ---
Assessment/Plan - Assessment and Plan (Free Text) Assessment: Nurse called because patient complaining of severe pain in the groin with movement of leg and walking. Patient was given Tyelnol earlier for pain with minimal relief. Patient states that she takes Motrin 800 mg po prn for pain at home. On physical exam, cath site in right groin had dry dressing in place with no swelling or echymosis noted. Normal pulses in b/l DP and PT. Plan: Nurse paged Dr. Barakat. awaiting response. Motrin 800 mg po once ordered. - Date & Time Date: 01/08/19 Time: 13:23
--- NOTE | 2019-01-08 14:11 | CARD ---
APPROVED REPORT Date of service: 01/06/2019 EKG Measurement Heart [id number] <Conclusion> Normal sinus rhythm T wave abnormality, consider inferior ischemia T wave abnormality, consider anterolateral ischemia Prolonged QT Abnormal ECG
[2019-01-09] MEDS: Nitroglycerin 2% Ointment Foilpak UD TOP SCH ×2 (06:28→12:41)
[2019-01-09] MEDS: Levothyroxine 88 MCG TAB PO SCH (06:29)
[2019-01-09 07:28] LABS: BASO % 0.5 % (0.0-2.0); EOS # 0.3 K/uL (0.0-0.7); HEMOGLOBIN 12.8 g/dL (11.0-16.0); LYMPH # 2.9 K/uL (1.0-4.3); LYMPH % 51.1 % (20.0-40.0); MEAN CELL VOLUME 84.7 fL (81.0-99.0); MEAN CORPUSCULAR HEMOGLOBIN 28.5 pg (27.0-31.0); MEAN CORPUSCULAR HGB CONC 33.7 g/dL (33.0-37.0); MEAN PLATELET VOLUME 8.1 fL (7.2-11.7); MONO # 0.4 K/uL (0.0-0.8); MONO % 7.7 % (0.0-10.0); NEUT % 35.7 % (50.0-75.0); RBC 4.47 Mil/uL (3.80-5.20); RED CELL DISTRIBUTION WIDTH 13.7 % (11.5-14.5); WHITE BLOOD COUNT 5.7 K/uL (4.8-10.8)
[2019-01-09 07:46] VITALS: TEMP 98; O2SAT 96
[2019-01-09 07:51] LABS: ALB/GLOB RATIO 1.3 (1.0-2.1); ALBUMIN 4.4 g/dL (3.5-5.0); ALT/SGPT 18 U/L (9-52); AST/SGOT 37 U/L (14-36); BLOOD UREA NITROGEN 17 mg/dL (7-17); CALCIUM 9.6 mg/dl (8.6-10.4); GFR NON-AFRICAN AMERICAN > 60
[2019-01-09] MEDS: (Novolog) Insulin Aspart, Recombinant 100 u/ml 10 ml vial SC SCH ×2 (08:09→12:30)
[2019-01-09] MEDS: diltiaZEM 300 mg/24 Hours CD Cap PO SCH (09:29)
[2019-01-09] MEDS: Pantoprazole 40 mg EC Tab PO SCH (09:29)
[2019-01-09] MEDS: Enoxaparin 30 mg Syringe SC SCH (09:29)
--- NOTE | 2019-01-09 11:20 | CP.PCM.DIS ---
Provider - Provider Date of Admission: 01/05/19 21:25 Attending physician: Sheri Barakat MD Time Spent in preparation of Discharge (in minutes): 32 Hospital Course - Lab Results Lab Results: Most Recent Lab Values WBC 5.7 K/uL (4.8-10.8) 01/09/19 07:11 RBC 4.47 Mil/uL (3.80-5.20) 01/09/19 07:11 Hgb 12.8 g/dL (11.0-16.0) 01/09/19 07:11 Hct 37.9 % (34.0-47.0) 01/09/19 07:11 MCV 84.7 fL (81.0-99.0) 01/09/19 07:11 MCH 28.5 pg (27.0-31.0) 01/09/19 07:11 MCHC 33.7 g/dL (33.0-37.0) 01/09/19 07:11 RDW 13.7 % (11.5-14.5) 01/09/19 07:11 Plt Count 203 K/uL (130-400) 01/09/19 07:11 MPV 8.1 fL (7.2-11.7) 01/09/19 07:11 Neut % (Auto) 35.7 % (50.0-75.0) L 01/09/19 07:11 Lymph % (Auto) 51.1 % (20.0-40.0) H 01/09/19 07:11 [place] % (Auto) 7.7 % (0.0-10.0) 01/09/19 07:11 Eos % (Auto) 5.0 % (0.0-4.0) H 01/09/19 07:11 Baso % (Auto) 0.5 % (0.0-2.0) 01/09/19 07:11 Neut # (Auto) 2.0 K/uL (1.8-7.0) 01/09/19 07:11 Lymph # (Auto) 2.9 K/uL (1.0-4.3) 01/09/19 07:11 [place] # (Auto) 0.4 K/uL (0.0-0.8) 01/09/19 07:11 Eos # (Auto) 0.3 K/uL (0.0-0.7) 01/09/19 07:11 Baso # (Auto) 0.0 K/uL (0.0-0.2) 01/09/19 07:11 PT 11.2 SECONDS (9.7-12.2) 01/07/19 07:06 INR 1.0 01/07/19 07:06 APTT 31 SECONDS (21-34) 01/07/19 07:06 Sodium 137 mmol/L (132-148) 01/09/19 07:11 Potassium 4.1 mmol/L (3.6-5.2) 01/09/19 07:11 Chloride 102 mmol/L (98-107) 01/09/19 07:11 Carbon Dioxide 28 mmol/L (22-30) 01/09/19 07:11 Anion Gap 12 (10-20) 01/09/19 07:11 BUN 17 mg/dL (7-17) 01/09/19 07:11 Creatinine 0.9 mg/dL (0.7-1.2) 01/09/19 07:11 Est GFR ( Amer) > 60 01/09/19 07:11 Est GFR (Non-Af Amer) > 60 01/09/19 07:11 POC Glucose (mg/dL) 285 mg/dL (65-110) H 01/09/19 11:03 Random Glucose 137 mg/dL (65-105) H D 01/09/19 07:11 Calcium 9.6 mg/dl (8.6-10.4) 01/09/19 07:11 Total Bilirubin 0.3 mg/dL (0.2-1.3) 01/09/19 07:11 AST 37 U/L (14-36) H D 01/09/19 07:11 ALT 18 U/L (9-52) 01/09/19 07:11 Alkaline Phosphatase 114 U/L (38-126) 01/09/19 07:11 Total Creatine Kinase 176 U/L (30-135) H 01/06/19 12:20 CK-MB (Mass) 0.80 ng/mL (0.0-3.38) 01/06/19 12:20 Troponin I < 0.0120 ng/mL (0.00-0.120) 01/06/19 12:20 NT-Pro-B Natriuret Pep 237 pg/mL (0-900) 01/05/19 20:07 Total Protein 7.8 g/dL (6.3-8.3) 01/09/19 07:11 Albumin 4.4 g/dL (3.5-5.0) 01/09/19 07:11 Globulin 3.3 gm/dL (2.2-3.9) 01/09/19 07:11 Albumin/Globulin Ratio 1.3 (1.0-2.1) 01/09/19 07:11 Free T4 1.63 ng/dL (0.78-2.19) 01/05/19 20:07 Total T3 1.24 nmol/L (1.49-2.60) L 01/05/19 20:07 TSH 3rd Generation 0.33 mIU/L (0.46-4.68) L 01/05/19 20:07 Urine HCG, Qual Negative (NEGATIVE) 01/07/19 08:48 - Hospital Course Hospital Course: see previous discharge note PT STAYED ONE MORE DAY DUE TO SEVERE GROIN PAIN FROM ARTERIAL PUNCTURE PT STABLE , PULSES INTACT Discharge Plan - Follow Up Plan Condition: STABLE Disposition: HOME/ ROUTINE Instructions: Chest Pain (DC) Additional Instructions: FOLLOW UP WITH DR BARAKAT IN HIS OFFICE IN A WEEK -----CALL FOR APPOINTMENT CONTINUE HOME MEDICATION ACTIVITY TOLERATED CALL DR BARAKAT OR GO TO THE EMERGENCY ROOM IF SYMPTOM RETURN NOR WORSENING Referrals: Sheri Barakat MD [Staff Provider] -
[2019-01-09 12:45] VITALS: BP 119/86; PULSE 86
== END 2019-01-09 13:56 | disposition home or self-care (01) ==
LOC: C.ER 18:58 → C.9E 21:25 → C.5S 22:20
PROVIDERS: ADMIT Internal Medicine Cardiovascular Disease; ATTEND Internal Medicine Cardiovascular Disease
DX: I25.110 Atherosclerotic heart disease of native coronary artery with unstable angina pectoris (principal); I10 Essential (primary) hypertension; E11.9 Type 2 diabetes mellitus without complications; J44.9 Chronic obstructive pulmonary disease, unspecified; Z87.891 Personal history of nicotine dependence
CPT/HCPCS: 36415; 71045; 80053; 82948; 83880; 84439; 84443; 84480; 84484; 84703; 85025; 85610; 85730; 93005; 93458; 97116; 97162; 99285; C1760; C1769; C1887; C1893; G0378; G8978; G8979; J1644; J1650; J7070; Q9967